=== PATIENT | female | born 1955 | race Caucasian/White ===

== ENCOUNTER 2017-12-01 12:34 | Day surgery (SDC) | payer OTHER ==
[2017-12-01] MEDS ORDERED: MIDAZOLAM 1 MG/ML 2 ML INJ ×3 (16:09)
[2017-12-01] MEDS ORDERED: FENTAnyl 50 MCG/ML VIAL ×2 (16:10)
== END 2017-12-01 17:43 | disposition home or self-care (01) ==
LOC: GIL 12:34
DX: K92.1 Melena (principal); K51.30 Ulcerative (chronic) rectosigmoiditis without complications
CPT/HCPCS: 45380; 88305